=== PATIENT | male | born 1995 | race African-American/Black ===

== ENCOUNTER 2019-06-21 19:20 | Emergency (ER) | payer BC, SELFPAY ==
--- NOTE | 2019-06-21 19:35 | ED.URI ---
HPI - URI/Sore Throat General Chief Complaint: Upper Respiratory Infection Stated Complaint: URI/[place] Time Seen by Provider: 06/21/19 19:35 Source: patient and RN notes reviewed History of Present Illness HPI Narrative: Patient is a 24-year-old male that presents the urgent care with complaints of postnasal drainage, bilateral ear pressure, runny nose. Patient states that he is been taking nothing [id number] for his symptoms with the exception of 1 dose of ibuprofen yesterday. Patient states that started 3 days ago. Denies any known fever, nausea, vomiting, cough, shortness of breath. No other acute complaints. No acute distress noted. Patient read the plan of care. Related Data Allergies Allergy/AdvReac Type Severity Reaction Status Date / Time No Known Allergies Allergy Verified 09/06/18 11:08 Review of Systems Review of Systems: Narrative: CONSTITUTIONAL: Denies fever, chills, or sweats. EYES: Denies visual changes, redness, or discharge. ENT: Reports of bilateral ear pressure and postnasal drainage CARDIOVASCULAR: Denies chest pain, palpitations, or edema. RESPIRATORY: Denies cough or dyspnea. GASTROINTESTINAL: Denies abdominal pain, nausea, vomiting, or diarrhea. GENITOURINARY: Denies dysuria or hematuria. SKIN: Denies rash or itching. MUSCULOSKELETAL: Denies back pain, joint pain, or myalgia. NEUROLOGIC: Denies headache, numbness, or weakness. All other systems reviewed are negative, except as documented in HPI. PMFSH Comments At the time of my signature, I reviewed and agree with the nursing past medical, surgical, social, and family history. There is no relevant family history pertinent to the patient complaint. Exam Narrative: Exam Narrative: GENERAL: This is a well-nourished, well-developed patient, in no apparent distress. HEAD: normocephalic, atraumatic. EYES: PERRL. Sclera clear/white. Vision is grossly intact. EARS: External ears normal, auditory canals clear and without drainage, mild fluid noted behind bilateral TMs without otitis, TMs normal without perforation. Hearing grossly intact. NOSE: External nose normal with no obvious nasal discharge, nares without redness, no rhinorrhea. THROAT: Mucous membranes moist, posterior pharynx clear. Mild postnasal drainage NECK: Neck supple, non-tender without lymphadenopathy, masses or thyromegaly. CARDIOVASCULAR: Regular rate and rhythm without murmurs, gallops, or rubs. RESPIRATORY: Clear to auscultation. Breath sounds equal bilaterally. No wheezes, rales, or rhonchi. SKIN: warm, intact with no suspicious lesions or rash, good texture and turgor. NEURO: awake, alert, and oriented to person, place and time. There were no obvious focal neurologic abnormalities. EXTREMITIES: No clubbing, cyanosis, or edema. Course Vital Signs Vital signs: Vital Signs Temperature 98.0 F 06/21/19 19:39 Pulse Rate 75 06/21/19 19:39 Respiratory Rate 16 06/21/19 19:39 Blood Pressure 123/75 06/21/19 19:39 Pulse Oximetry 99 06/21/19 19:39 Temperature 98.0 F 06/21/19 19:39 Pulse Rate 75 06/21/19 19:39 Respiratory Rate 16 06/21/19 19:39 Blood Pressure 123/75 06/21/19 19:39 Pulse Oximetry 99 06/21/19 19:39 Reviewed MDM - URI/Sore Throat MDM Narrative Medical decision making narrative: Advised patient to use Claritin and Flonase [id number] daily for symptom relief. Use ibuprofen/Tylenol as needed for fever or headache. Increase fluids and rest. Use humidifier at night. Follow-up with PCP within 2 to 5 days if her worsening symptoms or failure to improve. Differential Diagnosis Differential diagnosis: Likely upper respiratory infection, otitis media, sinusitis, viral infection, bronchitis, influenza and pharyngitis Critical Care Time Critical Care Time Critical Care Time: No Discharge Plan Discharge Clinical Impression: Sinusitis Qualifiers: Sinusitis location: unspecified location Chronicity: unspecified Qualified Code(s): J3
[2019-06-21 19:39] VITALS: BP 123/75; PULSE 75; RESP 16; TEMP 36.7; O2SAT 99
== END 2019-06-21 19:47 | disposition home or self-care (01) ==
PROVIDERS: Emergency Provider Nurse Practitioner Family
DX: J32.9 Chronic sinusitis, unspecified (principal)
CPT/HCPCS: 99211; G0463

== ENCOUNTER 2019-08-31 19:14 | Emergency (ER) | payer BC, SELFPAY ==
[2019-08-31 19:23] VITALS: BP 124/74; PULSE 69; RESP 16; TEMP 36.8; O2SAT 100
--- NOTE | 2019-08-31 19:23 | ED.URI ---
HPI - URI/Sore Throat General Chief Complaint: Upper Respiratory Infection Stated Complaint: sore throat/fever/fatigue Time Seen by Provider: 08/31/19 19:23 Source: patient Mode of arrival: ambulatory Limitations: no limitations History of Present Illness HPI Narrative: Praveen Medina is a 24 yo male with URI symptoms of sore throat, sinus congestion. Works for [employer] and was having dry cough and fatigue Monday at work and so he was tested at work for the coronavirus. Was told he is negative as of yesterday; but was told that he has to come to a doctor and get a return to work note Related Data Allergies Allergy/AdvReac Type Severity Reaction Status Date / Time No Known Allergies Allergy Verified 08/31/19 19:30 Review of Systems Review of Systems: Narrative: CONSTITUTIONAL: Denies fever, chills, sweats. EYES: Denies visual changes, redness, discharge. ENT: Denies rhinorrhea, congestion, has sore throat, no otalgia. CARDIOVASCULAR: Denies chest pain, palpitations, edema. RESPIRATORY: Denies dyspnea, wheezing, resolving cough GASTROINTESTINAL: Denies abdominal pain, nausea, vomiting, diarrhea. GENITOURINARY: Denies dysuria, hematuria, abnormal discharge SKIN: Denies rash or itching. NEUROLOGIC: Denies numbness, or focal weakness. PSYCHIATRIC: Denies anxiety or depression. [facility] Family History Family History Other Multiple sclerosis Social History Social History Smoking status: Never smoker Alcohol intake: never Gender identity (if verbalized by the patient): Male Comments At time of signature, I agree with nursing past medical, surgical, social and family history. There is no relevant family history pertinent to the presenting complaint. Exam Narrative: Exam Narrative: GENERAL: This is a well-nourished, well-developed patient, in mild distress. HEAD: normocephalic, atraumatic. EYES: PERRL. Sclera clear/white. Vision is grossly intact. EARS: External ears normal, auditory canals clear and without drainage, TMs normal without perforation. Hearing grossly intact. NOSE: External nose normal without nasal discharge, nares without redness, has rhinorrhea. THROAT: Mucous membranes moist, posterior pharynx erythema no exudate NECK: Neck supple, CARDIOVASCULAR: Tachycardic rate and rhythm without murmurs, gallops, or rubs. RESPIRATORY: Bilateral occasional wheeze at bases to auscultation. Breath sounds equal bilaterally, rales, or rhonchi. GASTROINTESTINAL: Abdomen soft, SKIN: warm, intact with no suspicious lesions or rash, good texture and turgor. NEURO: awake, alert, and oriented to person, place and time. There were no obvious focal neurologic abnormalities. Steady gait EXTREMITIES: Normal range of motion. BACK: Nontender without deformity Course Course Emergency Course: Strep test-negative Started on Flonase and Claritin daily Follow-up with PCP Vital Signs Vital signs: Vital Signs Temperature 98.3 F 08/31/19 19:23 Pulse Rate 69 08/31/19 19:23 Respiratory Rate 16 08/31/19 19:23 Blood Pressure 124/74 08/31/19 19:23 Pulse Oximetry 100 08/31/19 19:23 Temperature 98.3 F 08/31/19 19:23 Pulse Rate 69 08/31/19 19:23 Respiratory Rate 16 08/31/19 19:23 Blood Pressure 124/74 08/31/19 19:23 Pulse Oximetry 100 08/31/19 19:23 MDM - URI/Sore Throat Differential Diagnosis Differential diagnosis: Likely upper respiratory infection, viral infection, bronchitis and pharyngitis Lab Data Labs: Strep Screen Presumptive Negative *(Reference Range: Negative)* Discharge Plan Discharge Clinical Impression: Upper respiratory infection Qualifiers: URI type: unspecified viral URI Qualified Code(s): J06.9 - Acute upper respiratory infection, unspecified Patient Disposition: Home, Self-Care Condition: Stable Instructions:
== END 2019-08-31 19:38 | disposition home or self-care (01) ==
PROVIDERS: Emergency Provider Nurse Practitioner
DX: J06.9 Acute upper respiratory infection, unspecified (principal)
CPT/HCPCS: 87081; 87880; 99213; G0463

== ENCOUNTER 2020-02-10 19:32 | Emergency (ER) | payer BC, SELFPAY ==
[2020-02-10 19:38] VITALS: BP 146/76; PULSE 66; RESP 18; TEMP 36.4; O2SAT 99
--- NOTE | 2020-02-10 19:49 | ED.EAR ---
HPI - Ear Problem General Chief complaint: Ear Stated complaint: Left pain Source: patient Mode of arrival: ambulatory Limitations: no limitations History of Present Illness HPI Narrative: Patient is a 24-year-old male who presents complaining of left ear fullness and pain x2 days. Patient reports having foreign body (bug) in the right ear 2 days ago. He denies taking [id number]-[id number] medications for pain. He denies fever, sore throat, rhinorrhea or other complaints. MD Complaint: ear pain Related Data Allergies Allergy/AdvReac Type Severity Reaction Status Date / Time No Known Allergies Allergy Verified 02/10/20 19:43 Review of Systems Review of Systems: Narrative: CONSTITUTIONAL: Denies fever, chills, or sweats. EYES: Denies visual changes, redness, or discharge. ENT: Denies rhinorrhea, congestion, sore throat, reports left otalgia CARDIOVASCULAR: Denies chest pain, palpitations, or edema. RESPIRATORY: Denies cough or dyspnea. GASTROINTESTINAL: Denies abdominal pain, nausea, vomiting, or diarrhea. GENITOURINARY: Denies dysuria or hematuria. SKIN: Denies rash or itching. MUSCULOSKELETAL: Denies back pain, joint pain, or myalgia. NEUROLOGIC: Denies headache, numbness, dizziness, or weakness. PSYCHIATRIC: Denies anxiety or depression. [facility] Past Medical History Medical History (Updated 02/10/20 @ 19:55 by BINA Taveras) Anxiety Depression Family History Family History Other Multiple sclerosis Social History Social History Smoking status: Never smoker Alcohol intake: never Gender identity (if verbalized by the patient): Male Exam Narrative: Exam Narrative: GENERAL: Well-appearing, well-nourished, and in no acute distress. HEAD: Normocephalic, atraumatic. EYES: No redness or drainage. Conjunctiva are normal. ENT: Mucous membranes pink and moist. Nares clear. No rhinorrhea. Right TM normal, left TM cloudy, injected, bulging. Throat normal. Uvula midline. CHEST: No respiratory distress. HEART: Regular rate and rhythm. EXTREMITIES: Normal range of motion. SKIN: Warm, dry, no rash. NEURO: No focal deficits. Alert and oriented x3. Gait steady. PSYCH: Normal affect. No signs of depression or anxiety. Course Vital Signs Vital signs: Vital Signs Temperature 36.4 C 02/10/20 19:38 Pulse Rate 66 02/10/20 19:38 Respiratory Rate 18 02/10/20 19:38 Blood Pressure 146/76 H 02/10/20 19:38 Pulse Oximetry 99 02/10/20 19:38 Temperature 36.4 C 02/10/20 19:38 Pulse Rate 66 02/10/20 19:38 Respiratory Rate 18 02/10/20 19:38 Blood Pressure 146/76 H 02/10/20 19:38 Pulse Oximetry 99 02/10/20 19:38 Reviewed. Patient has been instructed to follow-up with his PCP regarding his blood pressure. Medical Decision Making MDM Narrative Medical decision making narrative: Patient sutures left otitis media. Patient to be started on antibiotics at this time. Follow-up with PCP for ear recheck in 1 to 2 weeks as needed. Patient is stable for discharge to home with outpatient follow-up. Differential Diagnosis Differential Diagnosis: Otitis media Vital Signs Vital Signs: Vital Signs Temperature 36.4 C 02/10/20 19:38 Pulse Rate 66 02/10/20 19:38 Respiratory Rate 18 02/10/20 19:38 Blood Pressure 146/76 H 02/10/20 19:38 Pulse Oximetry 99 02/10/20 19:38 Temperature 36.4 C 02/10/20 19:38 Pulse Rate 66 02/10/20 19:38 Respiratory Rate 18 02/10/20 19:38 Blood Pressure 146/76 H 02/10/20 19:38 Pulse Oximetry 99 02/10/20 19:38 Critical Care Time Critical Care Time Critical Care Time: No Discharge Plan Discharge Clinical Impression: Otitis media Qualifiers: Otitis media type: unspecified Chronicity: acute Qualified Code(s): H66.90 - Otitis media, unspecified, unspecified ear Patient Disposition: Home, Self-Care Condition:
== END 2020-02-10 19:59 | disposition home or self-care (01) ==
PROVIDERS: Emergency Provider Nurse Practitioner
DX: H66.92 Otitis media, unspecified, left ear (principal)
CPT/HCPCS: 99213; G0463

== ENCOUNTER 2020-02-20 19:23 | Emergency (ER) | payer BC, SELFPAY ==
[2020-02-20 19:34] VITALS: BP 146/82; PULSE 81; RESP 16; TEMP 37; O2SAT 99
--- NOTE | 2020-02-20 20:08 | ED.GENADULT ---
HPI - General Adult General Chief complaint: Unspecified Stated complaint: muscle pain Source: patient Mode of arrival: ambulatory Limitations: no limitations History of Present Illness HPI narrative: This is a 24 YO black male that presented to with complains of General body fatigue, with stiffness in his shoulders and lower extremities. Patient notes that his mother has MS and he is concerned that he might have it. 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 Patient noted that he has a pinpoint sensation in his upper and lower extremities. Patient has no other complaint.Patient has no neuro def and strengthis equal bila and all extremities Related Data Allergies Allergy/AdvReac Type Severity Reaction Status Date / Time No Known Allergies Allergy Verified 02/20/20 19:52 Review of Systems Review of Systems: All systems reviewed & are unremarkable except as noted in HPI and below (10 point system reviewed) [facility] Past Medical History Medical History (Updated 02/20/20 @ 20:07 by BHARATI Hall) Anxiety Depression Family History Family History Other Multiple sclerosis Social History Social History Smoking status: Never smoker Alcohol intake: never Gender identity (if verbalized by the patient): Male Exam Narrative: Exam Narrative: GENERAL: This is a well-nourished, well-developed patient, in no apparent distress. HEAD: normocephalic, atraumatic. EYES: PERRL. Sclera clear/white. Vision is grossly intact. EARS: External ears normal, auditory canals clear and without drainage, TMs normal without perforation. Hearing grossly intact. NOSE: External nose normal with no obvious nasal discharge, nares without redness, no rhinorrhea. THROAT: Mucous membranes moist, posterior pharynx clear. NECK: Neck supple, non-tender without lymphadenopathy, masses or thyromegaly. CARDIOVASCULAR: Regular rate and rhythm without murmurs, gallops, or rubs. RESPIRATORY: Clear to auscultation. Breath sounds equal bilaterally. No wheezes, rales, or rhonchi. GASTROINTESTINAL: Abdomen soft, non-tender, nondistended. Bowel sounds are active. No hepato-splenomegaly, or palpable masses. No guarding. SKIN: warm, intact with no suspicious lesions or rash, good texture and turgor. NEURO: awake, alert, and oriented to person, place and time. There were no obvious focal neurologic abnormalities. Steady gait EXTREMITIES: Normal range of motion. No edema. No calf tenderness. Negative Homans sign bilaterally. BACK: Nontender without deformity or crepitance. No flank tenderness. Course Vital Signs Vital signs: Vital Signs Temperature 98.6 F 02/20/20 19:34 Pulse Rate 81 02/20/20 19:34 Respiratory Rate 16 02/20/20 19:34 Blood Pressure 146/82 H 02/20/20 19:34 Pulse Oximetry 99 02/20/20 19:34 Temperature 98.6 F 02/20/20 19:34 Pulse Rate 81 02/20/20 19:34 Respiratory Rate 16 02/20/20 19:34 Blood Pressure 146/82 H 02/20/20 19:34 Pulse Oximetry 99 02/20/20 19:34 Medical Decision Making Vital Signs Vital Signs: Vital Signs Temperature 98.6 F 02/20/20 19:34 Pulse Rate 81 02/20/20 19:34 Respiratory Rate 16 02/20/20 19:34 Blood Pressure 146/82 H 02/20/20 19:34 Pulse Oximetry 99 02/20/20 19:34 Temperature 98.6 F 02/20/20 19:34 Pulse Rate 81 02/20/20 19:34 Respiratory Rate 16 02/20/20 19:34 Blood Pressure 146/82 H 02/20/20 19:34 Pulse Oximetry 99 02/20/20 19:34 Discharge Plan Discharge Clinical Impression: Muscle spasm Patient Disposition: Home, Self-Care Condition: Stable Instructions: Antibiotic Form, Muscle Spasm (ED) Additional Instructions: What are the causes? There can be many causes for a muscle spasm. These include: Injury Overuse Keeping a muscle in the same position for a long period of time Loss of too much body fluid Poor
== END 2020-02-20 20:09 | disposition home or self-care (01) ==
PROVIDERS: Emergency Provider Nurse Practitioner
DX: M62.838 Other muscle spasm (principal)
CPT/HCPCS: 99213; G0463

== ENCOUNTER 2020-04-15 11:53 | Emergency (ER) | payer SELFPAY ==
--- NOTE | 2020-04-15 12:08 | ED.SKABFB ---
HPI - Skin/Abscess/Foreign Bdy General Chief complaint: Upper Respiratory Infection Stated complaint: Covid Symptoms Source: patient and RN notes reviewed Mode of arrival: ambulatory Limitations: no limitations History of Present Illness HPI narrative: This is a 25-year-old -[place] male that presented to our clinic today with complaints of blisters on his upper and lower lips, rash on his upper and lower extremities, runny nose and a sore throat. According to patient he developed sore throat runny nose and blisters in his upper and lower lip on Monday and on Monday he noticed a rash on his upper and lower extremities. Patient used cortisone cream at home for the rash with no improvement. The patient denies SOB, CP, palpitation, extremity numbness, lightheadedness, dizziness, constipation, diarrhea, chills, or fever. Related Data Home Medications Medication Instructions Recorded Confirmed Adult Multivitamin with Iron 250 mg PO DAILY 04/15/20 04/15/20 allopurinol 300 mg PO DAILY 04/15/20 04/15/20 Allergies Allergy/AdvReac Type Severity Reaction Status Date / Time No Known Allergies Allergy Verified 04/15/20 11:59 Review of Systems Review of Systems: All systems reviewed & are unremarkable except as noted in HPI and below PMFSH Past Medical History Medical History Anxiety Depression Family History Family History Other Multiple sclerosis Social History Social History Smoking status: Never smoker Alcohol intake: never Gender identity (if verbalized by the patient): Male Exam Narrative: Exam Narrative: GENERAL: This is a well-nourished, well-developed patient, in no apparent distress. HEAD: normocephalic, atraumatic. EYES: PERRL. Sclera clear/white. Vision is grossly intact. EARS: External ears normal, auditory canals clear and without drainage, TMs normal without perforation. Hearing grossly intact. NOSE: External nose normal with no obvious nasal discharge, nares without redness, no rhinorrhea. THROAT: Edematous erythema of the oropharynx NECK: Neck supple, non-tender without lymphadenopathy, masses or thyromegaly. CARDIOVASCULAR: Regular rate and rhythm without murmurs, gallops, or rubs. RESPIRATORY: Clear to auscultation. Breath sounds equal bilaterally. No wheezes, rales, or rhonchi. GASTROINTESTINAL: Abdomen soft, non-tender, nondistended. Bowel sounds are active. No hepato-splenomegaly, or palpable masses. No guarding. SKIN: Erythematous papule on upper and lower extremities,bulla on lower left inner lips. NEURO: awake, alert, and oriented to person, place and time. There were no obvious focal neurologic abnormalities. Steady gait EXTREMITIES: Normal range of motion. No edema. No calf tenderness. Negative Homans sign bilaterally. BACK: Nontender without deformity or crepitance. No flank tenderness. Course Vital Signs Vital signs: Vital Signs Temperature 98.1 F 04/15/20 12:18 Pulse Rate 96 04/15/20 12:18 Respiratory Rate 16 04/15/20 12:18 Blood Pressure 128/84 04/15/20 12:18 Pulse Oximetry 98 04/15/20 12:18 Temperature 98.1 F 04/15/20 12:18 Pulse Rate 96 04/15/20 12:18 Respiratory Rate 16 04/15/20 12:18 Blood Pressure 128/84 04/15/20 12:18 Pulse Oximetry 98 04/15/20 12:18 MDM - Skin/Abscess/Foreign Bdy Differential Diagnosis Differential diagnosis: Likely abscess of skin or subcutaneous tissue, cellulitis, eczema and contact dermatitis Lab Data Labs: Strep Screen Positive Group A Strep *(Reference Range: Negative)* Discharge Plan Discharge Clinical Impression: Strep pharyngitis Patient Disposition: Home, Self-Care Condition: Stable Instructions: Antibiotic Form, Strep Throat (DC) Additional Instruction
[2020-04-15 12:18] VITALS: BP 128/84; PULSE 96; RESP 16; TEMP 36.7; O2SAT 98
== END 2020-04-15 12:48 | disposition home or self-care (01) ==
PROVIDERS: Emergency Provider Nurse Practitioner
DX: J02.0 Streptococcal pharyngitis (principal)
CPT/HCPCS: 87880; 99213; G0463

== ENCOUNTER 2020-05-14 19:24 | Emergency (ER) | payer OTHER, SELFPAY ==
--- NOTE | 2020-05-14 19:36 | ED.URI ---
HPI - URI/Sore Throat General Chief Complaint: Upper Respiratory Infection Stated Complaint: Sore throat/Headache Source: patient and RN notes reviewed Mode of arrival: ambulatory History of Present Illness HPI Narrative: This is a 25-year-old -[place] male that is well-known to this urgent care with drainage in his throat, sore throat, headache, nasal drainage, head pressure for a few weeks, muscle tension in his back and shoulders. Patient recently received Lexapro and clonazepam from his primary care physician for anxiety. The patient denies SOB, CP, palpitation, extremity numbness, lightheadedness, dizziness, constipation, diarrhea, chills, or fever. We will treat patient for pharyngitis believe that most of his symptoms are caused by anxiety. Related Data Home Medications Medication Instructions Recorded Confirmed allopurinol 1 mg PO DAILY 05/14/20 05/14/20 clonazepam 1 mg PO TID 05/14/20 05/14/20 escitalopram oxalate 1 mg PO DAILY 05/14/20 05/14/20 Allergies Allergy/AdvReac Type Severity Reaction Status Date / Time No Known Allergies Allergy Verified 05/14/20 19:36 Review of Systems Review of Systems: All systems reviewed & are unremarkable except as noted in HPI and below (Ten point system reviewed) PMFSH Past Medical History Medical History Anxiety Depression Family History Family History Other Multiple sclerosis Social History Social History Smoking status: Never smoker Alcohol intake: never Gender identity (if verbalized by the patient): Male Exam Narrative: Exam Narrative: GENERAL: This is a well-nourished, well-developed patient, in no apparent distress. HEAD: normocephalic, atraumatic. EYES: PERRL. Sclera clear/white. Vision is grossly intact. EARS: External ears normal, auditory canals clear and without drainage, TMs normal without perforation. Hearing grossly intact. NOSE: External nose normal with no obvious nasal discharge, nares without redness, no rhinorrhea. THROAT: Mucous membranes moist, posterior pharynx edematous and erythematous NECK: Neck supple, non-tender without lymphadenopathy, masses or thyromegaly. CARDIOVASCULAR: Regular rate and rhythm without murmurs, gallops, or rubs. RESPIRATORY: Clear to auscultation. Breath sounds equal bilaterally. No wheezes, rales, or rhonchi. GASTROINTESTINAL: Abdomen soft, non-tender, nondistended. Bowel sounds are active. No hepato-splenomegaly, or palpable masses. No guarding. SKIN: warm, intact with no suspicious lesions or rash, good texture and turgor. NEURO: awake, alert, and oriented to person, place and time. There were no obvious focal neurologic abnormalities. Steady gait EXTREMITIES: Normal range of motion. No edema. No calf tenderness. Negative Homans sign bilaterally. BACK: Nontender without deformity or crepitance. No flank tenderness. Course Vital Signs Vital signs: Vital Signs Temperature 99.0 F 05/14/20 19:42 Pulse Rate 70 05/14/20 19:42 Respiratory Rate 16 05/14/20 19:42 Blood Pressure 139/82 05/14/20 19:42 Pulse Oximetry 98 05/14/20 19:42 Temperature 99.0 F 05/14/20 19:42 Pulse Rate 70 05/14/20 19:42 Respiratory Rate 16 05/14/20 19:42 Blood Pressure 139/82 05/14/20 19:42 Pulse Oximetry 98 05/14/20 19:42 MDM - URI/Sore Throat Lab Data Labs: Strep Screen Presumptive Negative *(Reference Range: Negative)* Discharge Plan Discharge Clinical Impression: Pharyngitis Qualifiers: Pharyngitis/tonsillitis etiology: unspecified etiology Qualified Code(s): J02.9 - Acute pharyngitis, unspecified Patient Disposition: Home, Self-Care Condition: Stable Instructions: Antibiotic Form, Pharyngitis (ED) Additional Instructions: Follow-
[2020-05-14 19:42] VITALS: BP 139/82; PULSE 70; RESP 16; TEMP 37.2; O2SAT 98
== END 2020-05-14 20:02 | disposition home or self-care (01) ==
PROVIDERS: Emergency Provider Nurse Practitioner
DX: J02.9 Acute pharyngitis, unspecified (principal); F41.9 Anxiety disorder, unspecified; F32.9 Major depressive disorder, single episode, unspecified
CPT/HCPCS: 87081; 87880; 99213; G0463

== ENCOUNTER 2020-10-15 12:19 | Emergency (ER) | payer OTHER, SELFPAY ==
--- NOTE | ~2020-10-15 | XR_ITS ---
EXAMINATION: XR chest 2V EXAM DATE: 10/15/2020 12:46 INDICATION: Left chest pain with deep inspiration, shortness of breath. TECHNIQUE: Frontal and lateral projections of the chest obtained and reviewed. There is no prior scooby dy for comparison. FINDINGS: The lungs are clear. There are no pleural effusions. The cardiomediastinal silhouette is within normal limits. There is no pneumothorax suspected. The bones and soft tissues are unremarkab le. IMPRESSION: Normal chest x-ray exam. Reviewed, dictated and finalized at location B. IMPRESSION: Normal chest x-ray exam.
[2020-10-15 12:25] VITALS: BP 139/82; PULSE 75; RESP 16; TEMP 36.8; O2SAT 99
--- NOTE | 2020-10-15 12:30 | ECG_ITS ---
Measurements Intervals [place] Rate: 73 P: 46 AR: 150 QRS: 40 QRSD: 97 T: 36 QT: 377 QTc: 417 Interpretive Statements SINUS RHYTHM WITH SINUS ARRHYTHMIA NORMAL ECG Electronically Signed On 10-15-2020 15:26:12 CDT by Wero Dewitt D.O.
--- NOTE | 2020-10-15 13:13 | ED.CHESTPAIN ---
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 Patient states he has a shorter, new 24-hour history of pleuritic left pectoral pain. Symptoms are mild, worse with breathing [not movement]. No radiation, fever, cough, epigastric pain, acid taste; no loss of taste/smell, S OB, wheezing, calf pain/edema; no HTN, AODM, HLD, no other risk factors. Related Data Home Medications Medication Instructions Recorded Confirmed allopurinol 1 mg PO DAILY 05/14/20 10/15/20 clonazepam 1 mg PO TID 05/14/20 10/15/20 escitalopram oxalate 1 mg PO DAILY 05/14/20 10/15/20 Allergies Allergy/AdvReac Type Severity Reaction Status Date / Time No Known Allergies Allergy Verified 10/15/20 12:27 Review of Systems Review of Systems: Narrative: General/Constitutional: No weight loss,fever Eyes: N0: Redness,discharge Ears/Nose/Throat: No: Epistaxis,ear discharge Respiratory: Denies: Hemoptysis Gastrointestinal: No Vomiting, Bleeding-rectal Skin: No Lumps, eruption Neurologic: No Focal Weakness,Sz Hematologic: Denies: Petechiae/Purpura Psychiatric: No: Suicida ideationl All Other Systems: Reviewed and Negative [facility] Past Medical History Medical History Anxiety Depression Family History Family History Other Multiple sclerosis Social History Social History Smoking status: Never smoker Alcohol intake: never Gender identity (if verbalized by the patient): Male Comments At time of signature, agree with nursing past medical, surgical, social and family history. There is no relevant family history pertinent to the presenting complaint Exam Narrative: Exam Narrative: General Appearance: Well appearing, No distress EYE: PERRLA, Conjunctiva clear Ears: External ear normal Nose: Normal nose Mouth/Throat: Normal appearing, Normal lips Neck: Supple Respiratory: Airway patent, No respiratory distress Cardiovascular: RRR, chest nontender Abdomen: Soft, Non-tender, Musculoskeletal: Full ROM Skin: Warm, Dry Neurological: A&O x3, CN II-X intact Psychiatric: Normal mood, Normal affect Course Course Emergency Course: Films visualized, interpreted by radiologist, agree, normal see report EKG sinus rhythm at 73 bpm, NH 0.15, QRS 0.09, QTC 0.0403, axis 45 Vital Signs Vital signs: Vital Signs Temperature 98.2 F 10/15/20 12:25 Pulse Rate 75 10/15/20 12:25 Respiratory Rate 16 10/15/20 12:25 Blood Pressure 139/82 10/15/20 12:25 Pulse Oximetry 99 10/15/20 12:25 Temperature 98.2 F 10/15/20 12:25 Pulse Rate 75 10/15/20 12:25 Respiratory Rate 16 10/15/20 12:25 Blood Pressure 139/82 10/15/20 12:25 Pulse Oximetry 99 10/15/20 12:25 Discharge Plan Discharge Clinical Impression: Chest pain, pleuritic Patient Disposition: Home, Self-Care Condition: Stable Additional Instructions: Do not operate machinery/drive with pain medicines Prescriptions: New azithromycin 250 mg tablet See Rx Instructions .ROUTE .COMPLEX Qty: 6 RF: 0 prednisone 20 mg tablet 60 mg PO DAILY Qty: 15 RF: 0 tramadol 50 mg tablet 50 mg PO HS PRN (Reason: pain) Qty: 14 RF: 0 No Action clonazepam 0.5 mg tablet 1 mg PO TID RF: 0 allopurinol 300 mg tablet 1 mg PO DAILY RF: 0 escitalopram oxalate 10 mg tablet 1 mg PO DAILY RF: 0 Other Ambulatory Orders: SARS-CoV-2 RNA, Qual RT-PCR (Routine) Location: Determined by Patient Ordered By: Christiano York Follow-up/Referrals: UNKNOWN,DOCTOR [Primary Care Provider] - Stand Alone Form
== END 2020-10-15 13:23 | disposition home or self-care (01) ==
PROVIDERS: Emergency Provider Emergency Medicine
DX: R07.81 Pleurodynia (principal); F41.9 Anxiety disorder, unspecified; F32.9 Major depressive disorder, single episode, unspecified
CPT/HCPCS: 71046; 71101; 93005; 99213; G0463

== ENCOUNTER 2020-10-21 08:02 | Emergency (ER) | payer OTHER, SELFPAY ==
[2020-10-21 08:13] VITALS: BP 136/91; PULSE 79; RESP 16; TEMP 36.6; O2SAT 98
--- NOTE | 2020-10-21 08:20 | ED.GENADULT ---
HPI - General Adult General Chief complaint: Shortness of Breath/Dyspnea Stated complaint: chest pain Time Seen by Provider: 10/21/20 08:21 Source: patient and RN notes reviewed Mode of arrival: ambulatory Limitations: no limitations History of Present Illness HPI narrative: 25-year-old -[place] male presents with complaints of chest wall pain for the past 2 days. ?Praveen reports symptoms started off on the LT side (6-7 days ago) and now is on the RT side. ?Prednisone, Azithromycin, Tramadol with some relief. ?No cough or chest congestion. ?No rhinorrhea and nasal congestion. Denies fever or chills. ?No drooling, neck or throat swelling. ?No cardiac chest pain, wheezing, or shortness of breath. ?Exacerbation factors consist of lifting heavy boxes and certain movements. ?Denies nausea, vomiting, and abdominal pain. Tolerating liquids well. Remains active. The patient reports he has not been diagnosed with COVID-19. ?The patient reports he received 2 Pfizer COVID-19 vaccines. The patient reports he is not waiting for the results of a COVID-19 lab test. The patient reports he does not have weakness, fatigue, or myalgia. The patient reports he does not have a new or worsening cough or shortness of breath. The patient reports he does not have any loss of taste, sore throat, and diarrhea. ?Denies recent traveling. ?Denies concerns for COVID-19 or exposures. ?At this time, the patient is not suspected of having COVID-19.? Some parts of this dictation were generated by voice recognition software and may contain typographical and/or grammatical inaccuracies. Related Data Home Medications Medication Instructions Recorded Confirmed allopurinol 1 mg PO DAILY 05/14/20 10/21/20 clonazepam 1 mg PO TID 05/14/20 10/21/20 escitalopram oxalate 1 mg PO DAILY 05/14/20 10/21/20 Allergies Allergy/AdvReac Type Severity Reaction Status Date / Time No Known Allergies Allergy Verified 10/15/20 12:27 Review of Systems Review of Systems: Narrative: CONSTITUTIONAL: Denies fever, chills, sweats. EYES: Denies visual changes, redness, discharge. ENT: Denies rhinorrhea, congestion, sore throat, otalgia. CARDIOVASCULAR: Denies chest pain, palpitations, edema. RESPIRATORY: Denies dyspnea, wheezing, cough. GASTROINTESTINAL: Denies abdominal pain, nausea, vomiting, diarrhea. SKIN: Denies rash or itching. MUSCULOSKELETAL: Denies acute back pain, joint pain, myalgia. Complains of RT chest wall pain. NEUROLOGIC: Denies numbness or focal weakness. PSYCHIATRIC: Denies anxiety or depression. All systems reviewed & are unremarkable except as noted in HPI and below. [facility] Past Medical History Medical History (Updated 10/22/20 @ 00:01 by Carolynn Lewis) Anxiety Depression Surgical History Surgical History (Updated 10/21/20 @ 08:53 by BINA Aviles) No significant past surgical history Family History Family History (Updated 10/21/20 @ 08:55 by BINA Aviles) Father Unknown family medical history Other Multiple sclerosis Social History Social History (Updated 10/21/20 @ 08:54 by BINA Aviles) Smoking status: Never smoker Tobacco type: cigarettes Second hand tobacco smoke exposure: No Alcohol intake: never Substance use: never Substance use type: does not use Living arrangements: with family Occupation/Education: occupation Gender identity (if verbalized by the patient): Male Comments At time of signature, agree with the nurse past medical, surgical, social, and family history. There is no relevant family history pertinent to the presenting complaint. Exam Narrative: Exam Narrative: GENERAL: This is a well-nourished, well-developed patient, in no apparent distress. Talks in full sentences and ambulates with steady gait without dyspnea. HEAD: Normocephalic, atraumatic. EYES: PERRL. Sclera clear/white. Vision is grossly intact. EARS: External ears normal, auditory canals clear an
[2020-10-21] MEDS: methylPREDNISolone SOD SUCC 125 MG VIAL IM (08:35)
[2020-10-21] MEDS: KETOROLAC (*BKC) 60 MG/2 ML VIAL IM (08:36)
== END 2020-10-21 09:17 | disposition home or self-care (01) ==
PROVIDERS: Emergency Provider Nurse Practitioner Family
DX: M94.0 Chondrocostal junction syndrome [Tietze] (principal); F41.9 Anxiety disorder, unspecified; F32.9 Major depressive disorder, single episode, unspecified
CPT/HCPCS: 96372; 99214; G0463; J1885; J2930

== ENCOUNTER 2020-11-29 17:01 | Emergency (ER) | payer OTHER, SELFPAY ==
[2020-11-29 17:12] VITALS: BP 130/78; PULSE 69; RESP 16; TEMP 36.3; O2SAT 100
--- NOTE | 2020-11-29 17:20 | ED.GENADULT ---
HPI - General Adult General Chief complaint: Ear Stated complaint: ear infection Time Seen by Provider: 11/29/20 17:21 Source: patient and RN notes reviewed Mode of arrival: ambulatory Limitations: no limitations History of Present Illness HPI narrative: 25-year-old -Greenland[place] male presents with complaints of upper respiratory infection, bilateral ear pressure (not the worst of his life), itching, moisture feeling, and forehead pressure for 1 day. Praveen reports increasing RT ear pressure and itching. No treatment. No facial swelling. No cough or chest congestion. Nasal congestion and rhinorrhea. ?No sore throat. No high fevers, drooling, neck or throat swelling. ?No voice change. ?No nausea, vomiting, or abdominal pain. Tolerating liquids well. Denies chills, dyspnea, difficulty swallowing, jaw pain, dental pain, foreign body sensation, and rash. ?No chest pain or shortness of breath. The patient reports he has not been diagnosed with COVID-19. The patient reports he received 2 Pfizer COVID-19 vaccines. The patient reports he is not waiting for the results of a COVID-19 lab test. The patient reports he does not have weakness, fatigue, or myalgia. The patient reports he does not have any loss of taste or smell and diarrhea. Denies recent traveling. Denies concerns for COVID-19 or exposures. At this time, the patient is not suspected of having COVID-19. Some parts of this dictation were generated by voice recognition software and may contain typographical and/or grammatical inaccuracies. Related Data Home Medications Medication Instructions Recorded Confirmed allopurinol 1 mg PO DAILY 05/14/20 10/21/20 clonazepam 1 mg PO TID 05/14/20 10/21/20 escitalopram oxalate 1 mg PO DAILY 05/14/20 10/21/20 Allergies Allergy/AdvReac Type Severity Reaction Status Date / Time No Known Allergies Allergy Verified 11/29/20 17:26 Review of Systems Review of Systems: CONSTITUTIONAL: Denies fever, chills, sweats. EYES: Denies visual changes, redness, discharge. ENT: Complains of rhinorrhea, congestion, facial congestion and pressure, sore throat, otalgia. CARDIOVASCULAR: Denies chest pain, palpitations, edema. RESPIRATORY: Denies dyspnea, wheezing, cough. GASTROINTESTINAL: Denies abdominal pain, nausea, vomiting, diarrhea. GENITOURINARY: Denies dysuria, hematuria, abnormal discharge SKIN: Denies rash or itching. MUSCULOSKELETAL: Denies acute back pain, joint pain, or myalgia. NEUROLOGIC: Denies numbness or focal weakness. Complains of forehead pressure. PSYCHIATRIC: Denies anxiety or depression. All other systems reviewed & are unremarkable except as noted in HPI and below. [facility] Past Medical History Medical History Anxiety Depression Surgical History Surgical History No significant past surgical history Family History Family History Father Unknown family medical history Other Multiple sclerosis Social History Social History Smoking status: Never smoker Tobacco type: cigarettes Second hand tobacco smoke exposure: No Alcohol intake: never Substance use: never Substance use type: does not use Gender identity (if verbalized by the patient): Male Comments At time of signature, agree with the nurse past medical, surgical, social, and family history. There is no relevant family history pertinent to the presenting complaint. Exam Narrative: GENERAL: This is a well-nourished, well-developed patient, in no apparent distress. Talks in full sentences and ambulates with steady gait without dyspnea. HEAD: Normocephalic, atraumatic. EYES: PERRL. Sclera clear/white. Vision is grossly intact. EARS: External ears normal, auditory canals clear and without drainage, TMs normal without
== END 2020-11-29 17:42 | disposition home or self-care (01) ==
PROVIDERS: Emergency Provider Nurse Practitioner Family
DX: J00 Acute nasopharyngitis [common cold] (principal); J01.90 Acute sinusitis, unspecified; F41.9 Anxiety disorder, unspecified; F32.9 Major depressive disorder, single episode, unspecified
CPT/HCPCS: 99213; G0463

== ENCOUNTER 2021-05-22 19:18 | Emergency (ER) | payer OTHER, SELFPAY ==
--- NOTE | 2021-05-22 19:22 | ED.BACK ---
HPI - Back Pain/Injury General Chief Complaint: Back Pain/Injury Stated Complaint: low back pain Time Seen by Provider: 05/22/21 19:36 Source: patient and RN notes reviewed Mode of arrival: ambulatory Limitations: no limitations History of Present Illness HPI Narrative: 26-year-old male presents with concern for low back pain. He denies injury or trauma. He reports he has had lower back pain that worsens with bending, walking. He reports pain can be burning in nature and feels tight. He reports symptoms have been present for approximately 1 week, reports he is recently getting over a Covid infection. He denies abdominal pain, loss of bowel or bladder function, weakness in any specific extremity. Reports feeling of his arms and legs being heavy and general weakness. He reports history of anxiety. Reports he is taken his mom's Flexeril and naproxen. MD elicited complaint: back pain Related Data Home Medications Medication Instructions Recorded Confirmed allopurinol 1 mg PO DAILY 05/14/20 05/22/21 escitalopram oxalate 1 mg PO DAILY 05/14/20 05/22/21 Allergies Allergy/AdvReac Type Severity Reaction Status Date / Time No Known Allergies Allergy Verified 05/22/21 19:37 Review of Systems Review of Systems: CONSTITUTIONAL: Denies malaise, chills, sweats, or fever. CARDIOVASCULAR: Denies chest pain, palpitations, or edema. RESPIRATORY: Denies cough or dyspnea. GASTROINTESTINAL: Denies abdominal pain, nausea, vomiting, diarrhea, loss of bowel function GENITOURINARY: Denies dysuria, hematuria, frequency, loss of bladder function. SKIN: Denies rash or itching. MUSCULOSKELETAL: Reports mid low back pain NEUROLOGIC: Denies numbness, weakness, or headache. All systems reviewed & are unremarkable except as noted in HPI and below [facility] Past Medical History Medical History Anxiety Depression Surgical History Surgical History No significant past surgical history Family History Family History Father Unknown family medical history Other Multiple sclerosis Social History Social History Smoking status: Never smoker Tobacco type: cigarettes Second hand tobacco smoke exposure: No Alcohol intake: never Substance use: never Substance use type: does not use Gender identity (if verbalized by the patient): Male Comments At time of signature, agree with nursing past medical, surgical, social and family history. There is no relevant family history pertinent to the presenting complaint Exam Narrative: GENERAL: Well-appearing, well-nourished, and in no acute distress. HEAD: Normocephalic, atraumatic. EYES: PERRLA and EOMI. NECK: Supple. No lymphadenopathy. CHEST: Clear to auscultation. No respiratory distress. HEART: Regular rate and rhythm. Distal pulses palpable and equal, cap refill <3 seconds ABDOMEN: Soft, nontender, nondistended, normal active bowel sounds, no palpable or pulsatile masses. No CVA tenderness MUSCULOSKELETAL: Normal range of motion and strength in all extremities; 5/5 strength with hip flexion and extension, dorsiflexion and extension, knee flexion and extension, plantar flexion and extension. Normal sensation in dermatomal distributions with sensitivity to light touch and pain. No midline back tenderness to palpation. No paraspinal tenderness. Transfers from lying to sitting to standing. SKIN: Warm, dry, no rash. No ecchymosis, erythema, open wounds to back. NEURO: No focal deficits. Alert and oriented x3. Reflexes intact. Normal gait. PSYCH: Normal mood and affect Course Course Emergency Course: Patient is aware of diagnosis, understands and agrees to treatment plan. Anticipatory guidance given. Patient agrees to follow-up as directed and is aware of reasons to seek car
[2021-05-22 19:25] VITALS: BP 141/93; PULSE 94; RESP 16; TEMP 37.1; O2SAT 99
[2021-05-22 19:38] VITALS: BP 141/93; PULSE 94; RESP 16; TEMP 37.1; O2SAT 99
== END 2021-05-22 19:55 | disposition home or self-care (01) ==
PROVIDERS: Emergency Provider Nurse Practitioner
DX: M54.50 Low back pain, unspecified (principal); F41.9 Anxiety disorder, unspecified; F32.A Depression, unspecified
CPT/HCPCS: 99213; G0463

== ENCOUNTER 2021-07-09 14:08 | Emergency (ER) | payer OTHER, SELFPAY ==
[2021-07-09 14:17] VITALS: BP 132/73; PULSE 71; RESP 16; TEMP 36.9; O2SAT 99
--- NOTE | 2021-07-09 14:25 | ECG_ITS ---
Measurements Intervals [place] Rate: 66 P: 21 FL: 172 QRS: 50 QRSD: 105 T: 41 QT: 411 QTc: 432 Interpretive Statements SINUS RHYTHM WITH MARKED SINUS ARRHYTHMIA NORMAL ECG COMPARED TO ECG 10/15/2020 12:37:57 NO SIGNIFICANT CHANGES Electronically Signed On 07-09-2021 17:30:34 CDT by Aleksey Valenzuela M.D.
--- NOTE | 2021-07-09 14:26 | ED.CHESTPAIN ---
HPI - Chest Pain General Chief Complaint: Chest Pain Stated Complaint: BURNING SENSATION TO L CHEST Time Seen by Provider: 07/09/21 14:23 Source: patient, RN notes reviewed and old records reviewed Mode of arrival: ambulatory Limitations: no limitations History of Present Illness HPI narrative: 26 year old male who presents to [facility] care with complaints of having this burning feeling to the left side of his chest. He states that the burning pain has been mor frequent the past 2 days and he is kind of concerned since he had a cousin from heart attack at young age recently. Patient states that was distant cousin and he weighed like 300lbs, states he is kind of a hypochondriac and is just concerned. Patient denies any cough or any radiation of pain to his back or arm, no associated nausea or vomiting. He states that he had COVID in April of this year and he was off 2 weeks and did gain about 20 lbs. He states that he does do a lot of frequent lifting he works for [employer]. complaint: chest pain and other (chest burning) Onset (ago): week(s) (2 with more frequent episode past 2 days) Timing of current episode: episodic Prior episodes: Yes Pain location: left chest Quality: other (burning) Treatment prior to arrival: none Risk Factors Coronary artery disease risk factors: none Thoracic aortic dissection risk factors: none Related Data Home Medications Medication Instructions Recorded Confirmed allopurinol 1 mg PO DAILY 05/14/20 05/22/21 escitalopram oxalate 1 mg PO DAILY 05/14/20 05/22/21 Allergies Allergy/AdvReac Type Severity Reaction Status Date / Time No Known Allergies Allergy Verified 05/22/21 19:37 Review of Systems Review of Systems: CONSTITUTIONAL: Denies fever, chills, or sweats. EYES: Denies visual changes, redness, or discharge. ENT: Denies rhinorrhea, congestion, sore throat, or otalgia. CARDIOVASCULAR: positive for burning type of left chest pain, palpitations, or edema. RESPIRATORY: Denies cough or dyspnea. GASTROINTESTINAL: Denies abdominal pain, nausea, vomiting, or diarrhea. GENITOURINARY: Denies dysuria or hematuria. SKIN: Denies rash or itching. MUSCULOSKELETAL: Denies back pain, joint pain, or myalgia. NEUROLOGIC: Denies headache, numbness, or weakness. PSYCHIATRIC: Positive for history of anxiety or depression. All systems reviewed & are unremarkable except as noted in HPI and below [facility] Past Medical History Medical History Anxiety Depression Surgical History Surgical History No significant past surgical history Family History Family History Father Unknown family medical history Other Multiple sclerosis Social History Social History Smoking status: Never smoker Tobacco type: cigarettes Second hand tobacco smoke exposure: No Alcohol intake: never Substance use: never Substance use type: does not use Gender identity (if verbalized by the patient): Male Exam Narrative: GENERAL: Well-appearing, well-nourished, and in no acute distress. HEAD: Normocephalic, atraumatic. EYES: PERRLA and EOMI. ENT: Nares clear, no rhinorrhea or epistaxis. Mucous membranes moist.TM;s normal with good light reflex, throat pink with no lesions or exudate no tonsil enlargment NECK: Supple. no lymphadenopathy CHEST: Clear to auscultation. No respiratory distress. no tachypnea or any accessory muscle use noted,SAO2 99% on room air HEART: Regular rate and rhythm. No murmur heard. Normal peripheral pulses. ABDOMEN: Soft, nontender, nondistended, normal active bowel sounds. EXTREMITIES: Normal range of motion. No edema. SKIN: Warm, dry, no rash. NEURO: No focal deficits. Alert and oriented x3. Course Course Level of Care: Express Care Visit Vital Signs Vital sign
== END 2021-07-09 14:54 | disposition home or self-care (01) ==
PROVIDERS: Emergency Provider Registered Nurse
DX: R07.89 Other chest pain (principal); F41.9 Anxiety disorder, unspecified; F32.A Depression, unspecified; Z86.16 Personal history of COVID-19
CPT/HCPCS: 93005; 99213; G0463

== ENCOUNTER 2021-08-05 19:40 | Emergency (ER) | payer OTHER, SELFPAY ==
--- NOTE | ~2021-08-05 | XR_ITS ---
EXAMINATION: XR chest 2V DATE: 08/05/2021 20:18 INDICATION: Shortness of breath and chest pain TECHNIQUE: PA and lateral views of the chest are obtained. COMPARISON: 10/15/2020 FINDINGS: The lungs are free of acute opacities. There is no pleural effusion or pneumothorax. The ca rdiomediastinal silhouette is normal. The visualized bones and soft tissues are unremarkable. IMPRESSION: 1. No acute cardiopulmonary abnormality. Reviewed, dictated and finalized at location F.
--- NOTE | 2021-08-05 19:42 | ECG_ITS ---
Measurements Intervals [place] Rate: 73 P: 38 MD: 161 QRS: 40 QRSD: 106 T: 42 QT: 378 QTc: 417 Interpretive Statements SINUS RHYTHM WITH SINUS ARRHYTHMIA INCOMPLETE RIGHT BUNDLE BRANCH BLOCK [90+ ms QRS DURATION, TERMINAL R IN V1/V2, 40+ ms S IN I/aVL/V4/V5/V6] COMPARED TO ECG 07/09/2021 14:24:00 NO SIGNIFICANT CHANGE Electronically Signed On 08-05-2021 20:58:41 CDT by Karen Ayala M.D.
[2021-08-05 20:05] VITALS: BP 123/83; PULSE 83; PULSE 89; RESP 14; TEMP 37.1; O2SAT 100
--- NOTE | 2021-08-05 20:14 | ED.CHESTPAIN ---
HPI - Chest Pain General Chief Complaint: Chest Pain Stated Complaint: Chest pain Time Seen by Provider: 08/05/21 19:46 Source: patient History of Present Illness HPI narrative: Patient presents with chest pain. Patient ports that pain for the past 3 days achy/sharp, constant, radiates to his left arm and to his back no clear aggravating or alleviating factors. He thinks maybe his symptoms are associated shortness of breath denies any nausea or diaphoresis. Reports has had multiple extended family members recently of a heart attack he also googled his symptoms online and was concerned about his symptoms so he came to the ER for further evaluation. Denies any recent hospitalizations or recent surgeries denies prior history of DVT Related Data Home Medications Medication Instructions Recorded Confirmed allopurinol 1 mg PO DAILY 05/14/20 05/22/21 escitalopram oxalate 1 mg PO DAILY 05/14/20 05/22/21 Allergies Allergy/AdvReac Type Severity Reaction Status Date / Time No Known Allergies Allergy Verified 05/22/21 19:37 Review of Systems Review of Systems: CONSTITUTIONAL: Denies fever, chills, or sweats. EYES: Denies visual changes, redness, or discharge. ENT: Denies rhinorrhea, congestion, sore throat, or otalgia. CARDIOVASCULAR: Denies palpitations, or edema. RESPIRATORY: Denies cough GASTROINTESTINAL: Denies abdominal pain, nausea, vomiting, or diarrhea. GENITOURINARY: Denies dysuria or hematuria. SKIN: Denies rash or itching. MUSCULOSKELETAL: Denies back pain, joint pain, or myalgia. NEUROLOGIC: Denies headache, numbness, dizziness, or weakness. PSYCHIATRIC: Denies anxiety or depression. All systems reviewed & are unremarkable except as noted in HPI and below [facility] Past Medical History Medical History Anxiety Depression Surgical History Surgical History No significant past surgical history Family History Family History Father Unknown family medical history Other Multiple sclerosis Social History Social History Smoking status: Never smoker Tobacco type: cigarettes Second hand tobacco smoke exposure: No Alcohol intake: never Substance use: never Substance use type: does not use Gender identity (if verbalized by the patient): Male Exam Narrative: GENERAL: Well-appearing, well-nourished, and in no acute distress. HEAD: Normocephalic, atraumatic. EYES: PERRLA and EOMI. ENT: Nares clear, no rhinorrhea or epistaxis. Mucous membranes moist. NECK: Supple. No masses. No JVD CHEST: Clear to auscultation. No respiratory distress. No wheezes rales or rhonchi HEART: Regular rate and rhythm. No murmur heard. Normal peripheral pulses. ABDOMEN: Soft, nontender, nondistended, normal active bowel sounds. EXTREMITIES: Normal range of motion. No edema. SKIN: Warm, dry, no rash. NEURO: No focal deficits. Alert and oriented x3. PSYCH: Normal mood and affect. Course Reevaluation(s) Reevaluation #1: Patient reports feeling much improved results and plan reviewed with patient. Patient is comfortable outpatient plan. Date: 08/05/21 Time: 21:02 Vital Signs Vital signs: Vital Signs Temperature 37.1 C 08/05/21 20:05 Pulse Rate 89 08/05/21 20:05 Respiratory Rate 14 08/05/21 20:05 Blood Pressure 123/83 08/05/21 20:05 Pulse Oximetry 100 08/05/21 20:05 Temperature 37.1 C 08/05/21 20:05 Pulse Rate 67 08/05/21 21:29 Respiratory Rate 18 08/05/21 21:29 Blood Pressure 119/80 08/05/21 21:29 Pulse Oximetry 100 08/05/21 21:29 MDM - Chest Pain MDM Narrative Medical decision making narrative: H&P as above, vss, pt looks clinically well, exam reassuring, labs reassuring to include negative troponin after days of symptoms, img without acute process, ad
[2021-08-05 20:21] LABS: Basophils Absolute Auto 0.1 K/mm3 (0.0-0.1); Basophils Percent Auto 0.9 % (0.2-1.2); Eosinophils Absolute Auto 0.5 K/mm3 (0-0.3); Eosinophils Percent Auto 6.2 % (0-4.4); Hematocrit 45.4 % (42.0-52.0); Hemoglobin 15.8 g/dL (14.0-18.0); Immature Granulocyte Absolute 0.02 K/mm3 (0.00-0.031); Immature Granulocyte Percent A 0.3 % (0-0.5); Lymphocytes Absolute Auto 3.25 K/mm3 (0.9-3.2); Lymphocytes Percent Auto 42.2 % (18.3-44.2); Mean Corpuscular HGB Conc 34.8 g/dl (32-36); Mean Corpuscular Hemoglobin 30.3 pg (26-34); Mean Platelet Volume 10.6 fl (7.4-10.4); Monocytes Absolute Auto 0.7 K/mm3 (0.1-0.6); Monocytes Percent Auto 8.8 % (2.6-8.5); Neutrophils Absolute Auto 3.2 K/mm3 (1.3-6.7); Neutrophils Percent Auto 41.6 % (45.5-73.1); Platelet Count Result 269 k/mm3 (150-375); Red Blood Count 5.22 M/mm3 (4.6-6.20); Red Cell Distribution Width 13.3 % (11.5-14.5); White Blood Count 7.7 K/mm3 (4.5-10.0)
[2021-08-05 20:26] VITALS: O2SAT 98
[2021-08-05 20:31] LABS: Alanine Aminotransferase 28 U/L (4-50); Albumin Level 4.7 g/dL (3.5-5.1); Alkaline Phosphatase 73 U/L (38-126); Anion Gap 9 mmol/L (8-16); Aspartate Amino Transferase 27 U/L (17-59); Bilirubin,Total 0.4 mg/dL (0.2-1.3); Blood Urea Nitrogen 13 mg/dL (9-20); Calcium 9.2 mg/dL (8.4-10.2); Carbon Dioxide 25 mmol/L (22-30); Chloride 103 mmol/L (98-107); Estimated CRCL calculation 103 ml/min; Estimated Glomerular Filt Rate > 60; Glucose 92 mg/dL (65-110); INR 1.1; Lipase 152 U/L (23-300); Potassium 3.9 mmol/L (3.4-5.0); Prothrombin Time 14.1 Seconds (11.1-14.7); Sodium 137 mmol/L (137-145)
[2021-08-05 20:32] LABS: Partial Thromboplastin Time 29.8 SECONDS (22.3-36.8)
[2021-08-05] MEDS: SODIUM CHLORIDE 0.9% IV 500 ML 999 ML IV CONT (20:38)
[2021-08-05 20:42] LABS: Troponin I < 0.012 ng/mL (0.000-0.034)
[2021-08-05 21:29] VITALS: BP 119/80; PULSE 67; RESP 18; O2SAT 100
== END 2021-08-05 21:29 | disposition home or self-care (01) ==
PROVIDERS: Emergency Medicine; Emergency Provider Emergency Medicine
DX: R07.9 Chest pain, unspecified (principal); F41.9 Anxiety disorder, unspecified; F32.A Depression, unspecified; I45.10 Unspecified right bundle-branch block
CPT/HCPCS: 36415; 71046; 80053; 83690; 84484; 85025; 85610; 85730; 93005; 96360; 99284; J7040

== ENCOUNTER 2022-02-11 20:39 | Emergency (ER) | payer OTHER, SELFPAY | END 2022-02-11 22:39 | disposition left against medical advice (07) | LOC: ANHED 20:54 | DX: Z53.21 Procedure and treatment not carried out due to patient leaving prior to being seen by health care provider (principal) | CPT/HCPCS: 99199 ==

== ENCOUNTER 2022-02-24 19:51 | Emergency (ER) | payer OTHER, SELFPAY ==
--- NOTE | 2022-02-24 19:57 | ED.BACK ---
HPI - Back Pain/Injury General Chief Complaint: Back Pain/Injury Stated Complaint: Back Pain Time Seen by Provider: 02/24/22 19:56 Source: patient Mode of arrival: ambulatory Limitations: no limitations History of Present Illness HPI Narrative: Praveen is a 26-year-old male patient presenting to clinic today with complaints of mid/low back pain. He reports he twisted his back while at work 2 days ago. states he soaked in Epsom salt bath last night and the symptoms improve so he went to work today and developed pain again. he denies any saddle anesthesia or loss of bowel or bladder. He denies any radiation of pain down his legs . States as though he feels his back was spasming last night. Related Data Home Medications Medication Instructions Recorded Confirmed allopurinol 300 mg tablet 300 mg PO DAILY 05/14/20 02/24/22 escitalopram oxalate 10 mg tablet 10 mg PO DAILY 05/14/20 02/24/22 clonazepam 0.5 mg tablet 0.5 mg PO DIRECTED 02/24/22 02/24/22 Allergies Allergy/AdvReac Type Severity Reaction Status Date / Time No Known Allergies Allergy Verified 02/24/22 20:01 Review of Systems Review of Systems: Pertinent positives per HPI. Patient denies any fever, chills, rash, headache, visual changes, dizziness, cough, runny nose, sore throat, shortness of breath, chest pain, palpitations, nausea, vomiting, diarrhea, constipation, abdominal pain, or any urinary issues. PMFSH Past Medical History Medical History Anxiety Depression Surgical History Surgical History No significant past surgical history Family History Family History Father Unknown family medical history Other Multiple sclerosis Social History Social History Smoking status: Never smoker Tobacco type: cigarettes Second hand tobacco smoke exposure: No Alcohol intake: never Substance use: never Substance use type: does not use Gender identity (if verbalized by the patient): Male Comments At the time of my signature, I reviewed and agree with the nursing past medical, surgical, social, and family history. There is no relevant family history pertinent to the patient complaint. Exam Narrative: General: Well-developed, well nourished, in no apparent distress Head: Normocephalic, atraumatic. Cardio: Regular rate and rhythm, s1 and s2 normal, no murmur appreciated. Resp: Clear to auscultation bilaterally, no rhonchi, rales, wheezing or rubs. Musculoskeletal: No deformity, tender to palpation over the mid and low back as well as the left paraspinous muscle/flank to palpation, mild discomfort with left straight leg test to the left flank, grossly normal range of motion, bilateral lower muscle strength strong and equal, patellar reflexes 2+ bilaterally,peripheral pulse strong, no edema, no cyanosis, normal gait and station Course Course Emergency Course: Portions of this record may have been created with voice recognition software. Level of Care: Express Care Visit Vital Signs Vital signs: Vital Signs Temperature 36.9 C 02/24/22 20:04 Pulse Rate 81 02/24/22 20:04 Respiratory Rate 16 02/24/22 20:04 Blood Pressure 146/77 H 02/24/22 20:04 Pulse Oximetry 99 02/24/22 20:04 Oxygen Delivery Room Air 02/24/22 20:04 Temperature 36.9 C 02/24/22 20:04 Pulse Rate 81 02/24/22 20:04 Respiratory Rate 16 02/24/22 20:04 Blood Pressure 146/77 H 02/24/22 20:04 Pulse Oximetry 99 02/24/22 20:04 Oxygen Delivery Room Air 02/24/22 20:04 Vital signs reviewed MDM - Back Pain/Injury MDM Narrative Medical decision making narrative: At the time of visit patient is resting comfortably on exam table. I suspect patient has a mid low back strain. Supportive measu
[2022-02-24 20:04] VITALS: BP 146/77; PULSE 81; RESP 16; TEMP 36.9; O2SAT 99
== END 2022-02-24 20:15 | disposition home or self-care (01) ==
PROVIDERS: Emergency Provider Nurse Practitioner Family
DX: S39.012A Strain of muscle, fascia and tendon of lower back, initial encounter (principal); X50.9XXA Other and unspecified overexertion or strenuous movements or postures, initial encounter; Y99.0 Civilian activity done for income or pay; F41.9 Anxiety disorder, unspecified; F32.A Depression, unspecified
CPT/HCPCS: 99213; G0463

== ENCOUNTER 2023-02-20 18:51 | Emergency (ER) | payer OTHER, SELFPAY ==
--- NOTE | ~2023-02-20 | XR_ITS ---
EXAMINATION: XR chest 2V DATE: 02/20/2023 19:06 INDICATION: Right-sided chest tightness and pain TECHNIQUE: PA and lateral views of the chest were obtained. COMPARISON: Chest radiograph dated 08/05/2021 FINDINGS: The lungs remain clear with no focal airspace opacities, pulmonary edema, pleural effusion or pneumot horax. The cardiomediastinal silhouette is normal. 14 degree thoracic dextroscoliosis. IMPRESSION: 1. No acute cardiopulmonary disease. Reviewed, dictated and finalized at location A. OGRAPHED PLATE INSPECTOR
--- NOTE | 2023-02-20 18:53 | ECG_ITS ---
Measurements Intervals [place] Rate: 73 P: 39 DE: 153 QRS: 31 QRSD: 129 T: 46 QT: 388 QTc: 428 Interpretive Statements SINUS RHYTHM VENTRICULAR PREMATURE COMPLEX INTRAVENTRICULAR CONDUCTION DELAY BORDERLINE ECG COMPARED TO ECG 08/05/2021 19:49:03 INTRAVENTRICULAR CONDUCTION DELAY NOW PRESENT Electronically Signed On 02-20-2023 19:17:33 [employer]ISH[employer] by Wero Dewitt D.O.
[2023-02-20 19:00] VITALS: BP 131/63; PULSE 75; RESP 17; TEMP 36.6; O2SAT 97
--- NOTE | 2023-02-20 19:27 | ED.CHESTPAIN ---
HPI - Chest Pain General Chief Complaint: Chest Pain Stated Complaint: CHEST PRESSURE,THROAT TIGHTNESS Time Seen by Provider: 02/20/23 19:11 History of Present Illness HPI narrative: 27-year-old male present emergency department for evaluation of 1 week of fatigue and 24 hours of chest tightness. Related Data Home Medications Medication Instructions Recorded Confirmed allopurinol 300 mg tablet 300 mg PO DAILY 05/14/20 02/24/22 escitalopram oxalate 10 mg tablet 10 mg PO DAILY 05/14/20 02/24/22 clonazepam 0.5 mg tablet 0.5 mg PO DIRECTED 02/24/22 02/24/22 Allergies Allergy/AdvReac Type Severity Reaction Status Date / Time No Known Allergies Allergy Verified 02/20/23 19:30 [facility] Past Medical History Medical History Anxiety Depression Surgical History Surgical History No significant past surgical history Family History Family History Father Unknown family medical history Other Multiple sclerosis Social History Social History Smoking status: Never smoker Tobacco type: cigarettes Second hand tobacco smoke exposure: No Alcohol intake: never Substance use: never Substance use type: does not use Living arrangements: with family Occupation/Education: occupation Gender identity (if verbalized by the patient): Male Course Course Emergency Course: 19-year-old male present emergency department for evaluation of chest tightness that has been ongoing for the last 24 hours and some fatigue has been going on for the last week. Patient was afebrile with no leukocytosis and a stable hemoglobin. No significant abnormalities on his CMP and patient had negative troponin. Patient was negative for influenza RSV and COVID. Chest x-ray showed no acute cardiopulmonary abnormality. EKG showed normal sinus. Patient is low risk coronary disease. Suspect viral etiology for the patient's symptoms. Patient was encouraged of close follow-up with his primary care physician for further cardiac testing. All questions concerns were addressed and patient was well-appearing at time of discharge. Vital Signs Vital signs: Vital Signs Temperature 97.9 F 02/20/23 19:00 Pulse Rate 75 02/20/23 19:00 Respiratory Rate 17 02/20/23 19:00 Blood Pressure 131/63 02/20/23 19:00 Pulse Oximetry 97 02/20/23 19:00 Oxygen Delivery Room Air 02/20/23 19:00 Temperature 97.9 F 02/20/23 19:00 Pulse Rate 73 02/20/23 20:53 Respiratory Rate 17 02/20/23 19:31 Blood Pressure 141/73 H 02/20/23 20:53 Pulse Oximetry 100 02/20/23 20:53 Oxygen Delivery Room Air 02/20/23 19:00 MDM - Chest Pain Differential Diagnosis Differential diagnosis: Likely unstable angina pectoris, atypical chest pain, costochondritis, chest pain and biliary colic Lab Data Attestation: I reviewed the patient's lab results. 02/20/23 19:22 02/20/23 19:22 Labs: Lab Results 02/20/23 02/20/23 02/20/23 Range/Units 19:22 19:23 19:27 WBC 7.8 (4.5-10.0) K/mm3 RBC 5.11 (4.6-6.20) M/mm3 Hgb 15.0 (14.0-18.0) g/dL Hct 45.1 (42.0-52.0) % MCV 88.3 (80-100) fl MCH 29.4 (26-34) pg MCHC 33.3 (32-36) g/dl RDW 13.6 (11.5-14.5) % Plt Count 247 (150-375) k/mm3 MPV 11.2 H (7.4-10.4) fl Immature Gran % (Auto) 0.1 (0-0.5) % Neut % (Auto) 45.8 (45.5-73.1) % Lymph % (Auto) 39.3 (18.3-44.2) % [place] % (Auto) 8.5 (2.6-8.5) % Eos % (Auto) 5.4 H (0-4.4) % Baso % (Auto) 0.9 (0.2-1.2) % Lymph # (Auto) 3.05 (0.9-3.2) K/mm3 [place] # (Auto) 0.7 H (0.1-0.6) K/mm3 Eos # (Auto) 0.4 H (0-0.3) K/mm3 Baso # (Auto) 0.1 (0.0-0.1) K/mm3 Abs Immat Gran (auto) 0.01 (0.00-0.031) K/mm3 A
[2023-02-20 19:31] VITALS: BP 126/92; PULSE 86; RESP 17; O2SAT 93
[2023-02-20 19:35] LABS: Basophils Absolute Auto 0.1 K/mm3 (0.0-0.1); Basophils Percent Auto 0.9 % (0.2-1.2); Eosinophils Absolute Auto 0.4 K/mm3 (0-0.3); Eosinophils Percent Auto 5.4 % (0-4.4); Hematocrit 45.1 % (42.0-52.0); Immature Granulocyte Absolute 0.01 K/mm3 (0.00-0.031); Immature Granulocyte Percent A 0.1 % (0-0.5); Lymphocytes Absolute Auto 3.05 K/mm3 (0.9-3.2); Lymphocytes Percent Auto 39.3 % (18.3-44.2); Mean Corpuscular HGB Conc 33.3 g/dl (32-36); Mean Corpuscular Hemoglobin 29.4 pg (26-34); Mean Corpuscular Volume 88.3 fl (80-100); Mean Platelet Volume 11.2 fl (7.4-10.4); Monocytes Absolute Auto 0.7 K/mm3 (0.1-0.6); Monocytes Percent Auto 8.5 % (2.6-8.5); Neutrophils Absolute Auto 3.6 K/mm3 (1.3-6.7); Neutrophils Percent Auto 45.8 % (45.5-73.1); Platelet Count Result 247 k/mm3 (150-375); Red Blood Count 5.11 M/mm3 (4.6-6.20); Red Cell Distribution Width 13.6 % (11.5-14.5); White Blood Count 7.8 K/mm3 (4.5-10.0)
[2023-02-20 19:45] LABS: Alanine Aminotransferase 29 U/L (6-50); Albumin Level 4.4 g/dL (3.5-5.1); Alkaline Phosphatase 70 U/L (38-126); Anion Gap 11 mmol/L (8-16); Aspartate Amino Transferase 25 U/L (17-59); Bilirubin,Total 0.5 mg/dL (0.2-1.3); Blood Urea Nitrogen 17 mg/dL (9-20); Carbon Dioxide 26 mmol/L (22-30); Chloride 103 mmol/L (98-107); Estimated CRCL calculation 114 ml/min; Estimated Glomerular Filt Rate > 60; Glucose 95 mg/dL (65-110); Lipase 158 U/L (23-300); Potassium 3.9 mmol/L (3.4-5.0); Sodium 140 mmol/L (137-145)
[2023-02-20 19:45] LABS: Prothrombin Time 13.4 Seconds (11.1-14.7)
[2023-02-20 19:46] LABS: Partial Thromboplastin Time 29.4 SECONDS (22.3-36.8)
[2023-02-20 19:54] LABS: D Dimer < 0.27 ug/mL (<0.48)
[2023-02-20 19:56] LABS: Troponin I < 0.012 ng/mL (0.000-0.034)
[2023-02-20 20:11] LABS: Influenza A QL RT-PCR Negative (Negative); Influenza B QL RT-PCR Negative (Negative); RSV RNA, RT-PCR Negative (Negative); SARS-CoV-2 RNA PCR Negative (Negative)
[2023-02-20 20:53] VITALS: BP 141/73; PULSE 73; O2SAT 100
== END 2023-02-20 20:54 | disposition home or self-care (01) ==
PROVIDERS: Emergency Provider Emergency Medicine
DX: R07.89 Other chest pain (principal); R06.02 Shortness of breath; Z20.822 Contact with and (suspected) exposure to COVID-19; F41.9 Anxiety disorder, unspecified; F32.A Depression, unspecified; I49.3 Ventricular premature depolarization; I45.9 Conduction disorder, unspecified
CPT/HCPCS: 36415; 71046; 80053; 83690; 84484; 85025; 85380; 85610; 85730; 87637; 93005; 99284

== ENCOUNTER 2023-03-22 21:41 | Emergency (ER) | payer OTHER, SELFPAY ==
--- NOTE | ~2023-03-22 | XR_ITS ---
EXAM: XR finger 1st RT min 2V DATE: 03/22/2023 22:07 HISTORY: trauma . COMPARISON: None available. FINDINGS: Normal mineralization. Subtle possible cortical irregularity or fragment. over the anterior aspect of the distal right first metacarpal just proximal to the sesamoid bones, se en only in the lateral view. No lytic or blastic lesion. Joint spaces are maintained. No erosion or p eriosteal change. Soft tissues within normal limits. IMPRESSION: Possible minimally displaced fracture of the anterior aspect of the distal right first me tacarpal versus artifact. Correlate for pain/point tenderness over the right first metacarpal head. Reviewed, dictated and finalized at location K. ULATING PROCESS INSPECTOR IMPRESSION: Possible minimally displaced fracture of the anterior aspect of the distal right first metacarpal versus artifact. Correlate for pain/point tender ness over the right first metacarpal head.
[2023-03-22 21:46] VITALS: BP 128/71; PULSE 81; RESP 17; TEMP 36.6; O2SAT 97
--- NOTE | 2023-03-23 00:03 | ED.UPPEXIN ---
HPI - Extremity Injury (Upper) General Chief Complaint: Extremity Injury, Upper Stated Complaint: thumb injury Time Seen by Provider: 03/22/23 23:12 Source: patient Mode of arrival: ambulatory Limitations: no limitations History of Present Illness HPI narrative: Patient is a 27-year-old male who presents to ED with report of right thumb pain. Patient reports he was accidentally hit by a high heel by his mom in his right thumb. He sustained injury to the distal portion of his right thumb including the nail. He did have bleeding from under the nail. Denies numbness/tingling. Denies wounds. Related Data Home Medications Medication Instructions Recorded Confirmed allopurinol 300 mg tablet 300 mg PO DAILY 05/14/20 02/24/22 escitalopram oxalate 10 mg tablet 10 mg PO DAILY 05/14/20 02/24/22 clonazepam 0.5 mg tablet 0.5 mg PO DIRECTED 02/24/22 02/24/22 Allergies Allergy/AdvReac Type Severity Reaction Status Date / Time No Known Allergies Allergy Verified 03/22/23 23:06 Review of Systems Review of Systems: CONSTITUTIONAL: Denies fever, chills, or sweats. MUSCULOSKELETAL: See HPI. NEUROLOGIC: Denies tingling, numbness, or weakness. All systems reviewed & are unremarkable except as noted in HPI and below PMFSH Past Medical History Medical History Anxiety Depression Surgical History Surgical History No significant past surgical history Family History Family History Father Unknown family medical history Other Multiple sclerosis Social History Social History Smoking status: Never smoker Tobacco type: cigarettes Second hand tobacco smoke exposure: No Alcohol intake: never Substance use: never Substance use type: does not use Living arrangements: with family Occupation/Education: occupation Gender identity (if verbalized by the patient): Male Exam Narrative: GENERAL: Well appearing, well-nourished, non-toxic, in no acute distress. HEAD: Normocephalic, atraumatic. RESPIRATORY: Airway patent, respirations nonlabored. CARDIOVASCULAR: Regular rate and rhythm without murmurs, rubs, or gallops. Radial pulses 2+. MUSCULOSKELETAL: Moves all extremities. No gross deformities. Mild swelling noted to right thumb. Mild limited range of motion of full flexion and opposition of right thumb due to pain. Tenderness over distal thumb/finger pad, IP joint of thumb. No significant tenderness over MCP joint. No tenderness throughout remainder of right hand. Sensation intact. Capillary refill intact. Small area of subungual hematoma on distal nail bed. Dried blood under nail plate. SKIN: Warm, dry, normal color. NEURO: A&O X3. Speech clear. PSYCHIATRIC: Appropriate mood and affect. Normal interaction. Course Vital Signs Vital signs: Vital Signs Temperature 97.8 F 03/22/23 21:46 Pulse Rate 81 03/22/23 21:46 Respiratory Rate 17 03/22/23 21:46 Blood Pressure 128/71 03/22/23 21:46 Pulse Oximetry 97 03/22/23 21:46 Temperature 97.8 F 03/22/23 21:46 Pulse Rate 81 03/22/23 21:46 Respiratory Rate 17 03/22/23 21:46 Blood Pressure 128/71 03/22/23 21:46 Pulse Oximetry 97 03/22/23 21:46 MDM - Extremity Injury (Upper) MDM Narrative Medical decision making narrative: Patient?s injury is consistent with musculoskeletal etiology. No signs of neurologic or vascular compromise on physical examination. Compartments are soft without signs of compartment syndrome. XR showing possible chip/avulsion fracture near MCP joint. Discussed these findings with the patient. He does not have any significant tenderness over this area. Tenderness more distally and over nail bed. Small subungual hematoma on exam along distal nail plate
== END 2023-03-23 00:34 | disposition home or self-care (01) ==
PROVIDERS: Emergency Provider Physician Assistant
DX: S60.111A Contusion of right thumb with damage to nail, initial encounter (principal); F41.9 Anxiety disorder, unspecified; F32.A Depression, unspecified; R93.6 Abnormal findings on diagnostic imaging of limbs; W22.8XXA Striking against or struck by other objects, initial encounter
CPT/HCPCS: 73140; 96372; 99283

== ENCOUNTER 2023-06-22 10:43 | Emergency (ER) | payer OTHER, SELFPAY ==
[2023-06-22 10:55] VITALS: BP 126/80; PULSE 72; RESP 16; TEMP 36.6; O2SAT 98
--- NOTE | 2023-06-22 11:16 | ED.URI ---
HPI - URI/Sore Throat General Chief Complaint: Upper Respiratory Infection Stated Complaint: sore throat,fatigue Time Seen by Provider: 06/22/23 11:05 Source: patient and RN notes reviewed Mode of arrival: ambulatory Limitations: no limitations History of Present Illness HPI Narrative: Patient presents today with a one-week history of nasal congestion and postnasal drainage with fatigue over the last couple of days. Denies fever, cough, shortness of breath. He has tried no medication for symptoms prior to arrival. Related Data Home Medications Medication Instructions Recorded Confirmed allopurinol 300 mg tablet 300 mg PO DAILY 05/14/20 06/22/23 escitalopram oxalate 10 mg tablet 10 mg PO DAILY 05/14/20 06/22/23 clonazepam 0.5 mg tablet 0.5 mg PO DIRECTED 02/24/22 06/22/23 Allergies Allergy/AdvReac Type Severity Reaction Status Date / Time No Known Allergies Allergy Verified 03/22/23 23:06 Review of Systems Review of Systems: CONSTITUTIONAL: Denies body aches, fever, chills, or sweats.+ fatigue EYES: Denies visual changes, redness, or discharge. ENT: Denies rhinorrhea, or otalgia.+ congestion, postnasal drip, mild sore throat CARDIOVASCULAR: Denies chest pain, palpitations, or edema. RESPIRATORY: Denies cough or dyspnea. GASTROINTESTINAL: Denies abdominal pain, nausea, vomiting, or diarrhea. GENITOURINARY: Denies dysuria or hematuria. SKIN: Denies rash, itching, or wounds. MUSCULOSKELETAL: Denies back pain, joint pain, or myalgia. NEUROLOGIC: Denies headache, numbness, tingling, or weakness. PSYCH: Denies depression or anxiety. [facility] Past Medical History Medical History Anxiety Depression Surgical History Surgical History No significant past surgical history Family History Family History Father Unknown family medical history Other Multiple sclerosis Social History Social History Smoking status: Never smoker Tobacco type: cigarettes Second hand tobacco smoke exposure: No Alcohol intake: never Substance use: never Substance use type: does not use Living arrangements: with family Occupation/Education: occupation Gender identity (if verbalized by the patient): Male Comments At time of signature, I have reviewed and agree with nursing past medical, surgical, social and family history unless otherwise noted. Please see nursing chart for further information. There is no relevant family history pertinent to the presenting complaint Exam Narrative: GENERAL: Well-appearing, well-nourished, and in no acute distress. HEAD: Normocephalic, atraumatic. EYES: EOMI. No redness or drainage. Conjunctivae normal. ENT: Mucous membranes pink and moist. Nares clear. No rhinorrhea. TMs normal bilaterally. Throat normal with mild clear post nasal drainage. Uvula midline. NECK: Normal AROM. Supple. No lymphadenopathy. CHEST: No respiratory distress. Clear to auscultation. HEART: Regular rate and rhythm. No murmur appreciated. EXTREMITIES: Normal range of motion. No edema. SKIN: Warm, dry, no rash. Capillary refill normal. Normal skin turgor. NEURO: No focal deficits. Alert and oriented x3. Gait steady. PSYCH: Normal affect. No signs of depression or anxiety. Course Course Level of Care: Express Care Visit Vital Signs Vital signs: Vital Signs Temperature 97.8 F 06/22/23 10:55 Pulse Rate 72 06/22/23 10:55 Respiratory Rate 16 06/22/23 10:55 Blood Pressure 126/80 06/22/23 10:55 Pulse Oximetry 98 06/22/23 10:55 Oxygen Delivery Room Air 06/22/23 10:55 Temperature 97.8 F 06/22/23 10:55 Pulse Rate 72 06/22/23 10:55 Respiratory Rate 16 06/22/23 10:55 Blood Pressure 126/80 06/22/23 10:55 Pulse Oxime
== END 2023-06-22 11:25 | disposition home or self-care (01) ==
PROVIDERS: Emergency Provider Nurse Practitioner
DX: J06.9 Acute upper respiratory infection, unspecified (principal); F41.9 Anxiety disorder, unspecified; F32.A Depression, unspecified
CPT/HCPCS: 99211; G0463

== ENCOUNTER 2024-03-16 13:19 | Emergency (ER) | payer OTHER, SELFPAY ==
[2024-03-16 13:28] VITALS: BP 142/88; PULSE 71; RESP 20; TEMP 36.4; O2SAT 99
--- NOTE | 2024-03-16 13:41 | ED.URI ---
HPI - URI/Sore Throat General Chief Complaint: Upper Respiratory Infection Stated Complaint: Sinus/Fatigue Time Seen by Provider: 03/16/24 13:41 Source: patient, RN notes reviewed and old records reviewed Mode of arrival: ambulatory Limitations: no limitations History of Present Illness HPI Narrative: Patient presents with complaints of runny nose, cough, sore throat since yesterday. He denies any fever, chills, sweats. He took [place] last night, reports that he slept well, has not taken any medications this morning. He is nontoxic appearing, no distress. No other concerns or complaints today Related Data Home Medications Medication Instructions Recorded Confirmed allopurinol 300 mg tablet 300 mg PO DAILY 05/14/20 03/16/24 escitalopram oxalate 10 mg tablet 10 mg PO DAILY 05/14/20 03/16/24 clonazepam 0.5 mg tablet 0.5 mg PO DIRECTED 02/24/22 03/16/24 Allergies Allergy/AdvReac Type Severity Reaction Status Date / Time No Known Allergies Allergy Verified 03/16/24 13:31 Review of Systems Review of Systems: All systems reviewed & are unremarkable except as noted in HPI and below Constitutional: Constitutional: Reports no additional constitutional complaints ENT: Reports system reviewed and no additional complaints, except as documented Cardiovascular: Cardiovascular: Reports no additional cardiovascular complaints Respiratory: Respiratory: Reports no additional respiratory complaints Gastrointestinal: Gastrointestinal: Reports no additional gastrointestinal complaints [facility] Past Medical History Medical History Anxiety Depression Surgical History Surgical History No significant past surgical history Family History Family History Father Unknown family medical history Other Multiple sclerosis Social History Social History Smoking status: Never smoker Tobacco type: cigarettes Second hand tobacco smoke exposure: No Alcohol intake: never Substance use: never Substance use type: does not use Living arrangements: with family Occupation/Education: occupation Gender identity (if verbalized by the patient): Male Comments At the time of my signature, I reviewed and agree with the nursing past medical, surgical, social, and family history. There is no relevant family history pertinent to the patient complaint. Exam Const: General: cooperative, no acute distress, alert and awake Orientation/consciousness: oriented to person, oriented to place and oriented to time HENMT: Head: normal to inspection Resp: Effort & Inspection: normal respiratory effort and able to speak in complete sentences Auscultation: clear to auscultation bilaterally, no crackles, no rales, no rhonchi and no wheezes Cardio: Palpation: normal PMI Rate: regular rate Rhythm: regular rhythm Heart sounds: S1 normal heart sound present and S2 normal heart sound present Neuro: General: oriented to person, oriented to place and oriented to time Cranial nerves: Yes CN's II-XII intact bilaterally Psych: Appearance: grossly normal Thought process: Normal thought process present Insight: Good insight present (Psych) Judgement: Good judgement present (Psych) Course Course Level of Care: Express Care Visit Vital Signs Vital signs: Vital Signs Temperature 97.6 F 03/16/24 13:28 Pulse Rate 71 03/16/24 13:28 Respiratory Rate 20 03/16/24 13:28 Blood Pressure 142/88 H 03/16/24 13:28 Pulse Oximetry 99 03/16/24 13:28 Oxygen Delivery Room Air 03/16/24 13:28 Temperature 97.6 F 03/16/24 13:28 Pulse Rate 71 03/16/24 13:28 Respiratory Rate 20 03/16/24 13:28 Blood Pressure 142/88 H 03/16/24 13:28 Pulse Oximetry 99 03/16/24 13:28 Oxygen Delivery Room Air 03/16/24 13:28 Reviewed MDM - URI/Sore Throat MDM Narrative Medical decision making narrative: Negative flu, negative COVID, negative strep. Culture pending. Reassuring physical exam. Symptoms likely viral in origin Discharge instructions reviewed with patient, as well as provided in writing per nursing staff. The instructions also include specific and strict return/GO TO THE ER as well as f/u information. All questions have been answered, and the patient deny any further questions with discharge and discharge plan. Some parts of this dictation were generated by voice recognition software and may contain typographical and/or grammatical inaccuracies. Differential Diagnosis Differential diagnosis: Likely upper respiratory infection, otitis media, sinusitis and viral infection Medical Records Attestation: I reviewed the patient's medical records. Lab Data Attestation: I reviewed the patient's lab results. Labs: Lab Results 03/16/24 Range/Units 13:38 POC Influenza A Ag Negative (Negative) POC Influenza B Ag Negative (Negative) POC SARS CoV-2 Ag Negative (Negative) POC Grp A Strep Screen Negative (Negative) Discharge Plan Discharge Clinical Impression: Upper respiratory infection Qualifiers: URI type: unspecified viral URI Qualified Code(s): J06.9 - Acute upper respiratory infection, unspecified Patient Disposition: Home, Self-Care Condition: Stable Instructions: Antibiotic Form, Cold Symptoms (ED) Additional Instructions: Use [id number] medications per package instructions to treat her symptoms as needed. Plenty of rest and fluids. Follow with primary care provider. Emergency department for any new or worse symptoms Patient Language: Icelandic Prescriptions: No Action allopurinol 300 mg tablet 300 mg PO DAILY escitalopram oxalate 10 mg tablet 10 mg PO DAILY clonazepam 0.5 mg tablet 0.5 mg PO DIRECTED Follow-up/Referrals: KoreyRahul M.D. [Primary Care Provider] - 2 Weeks Stand Alone Forms: Work/School Release IP Time of Disposition: 14:12
[2024-03-16 13:53] LABS: EDSTREPNEGPOS1 Negative (Negative)
[2024-03-16 14:01] LABS: EDCOVIDSCREEN Negative (Negative); EDINFLUASCREEN Negative (Negative); EDINFLUBSCREEN Negative (Negative)
== END 2024-03-16 14:15 | disposition home or self-care (01) ==
PROVIDERS: Emergency Provider Nurse Practitioner Family; PCP Family Medicine
DX: J06.9 Acute upper respiratory infection, unspecified (principal); Z20.822 Contact with and (suspected) exposure to COVID-19; F41.9 Anxiety disorder, unspecified; F32.A Depression, unspecified
CPT/HCPCS: 87081; 87426; 87804; 87880; 99213; G0463